=== PATIENT | female | born 1985 | race Hispanic/Latino ===

== ENCOUNTER 2020-01-13 23:54 | Inpatient (IN) | payer OTHER, SELFPAY ==
[2020-01-14 00:31] VITALS: BMI 35.0
[2020-01-14] MEDS: Lactated Ringer's 1,000 ML IV SCH ×2 (02:17→11:35)
[2020-01-14] MEDS ORDERED: Penicillin G Potassium 5 MILL.UNITS VIAL ONE (02:33)
[2020-01-14] MEDS ORDERED: Butorphanol Tartrate 1 MG/ML VIAL SLOW IVP PRN (03:18)
[2020-01-14] MEDS ORDERED: hydrALAZINE 20 MG/ML VIAL SLOW IVP PRN ×2 (03:18→14:07)
[2020-01-14] MEDS ORDERED: Ondansetron PF 4 MG/2 ML Vial IVP PRN ×2 (03:18→14:07)
[2020-01-14] MEDS ORDERED: Promethazine HCl 25 MG/ML VIAL IM PRN (03:18)
[2020-01-14] MEDS ORDERED: NS w/ Oxytocin 10 units 500 ML IV SCH ×2 (03:30)
[2020-01-14] MEDS ORDERED: HYDROcodone/Acetaminophen 5/325 mg Tablet PO PRN ×2 (03:30)
[2020-01-14] MEDS ORDERED: Lidocaine 1% (PF) 30 ML VIAL SC PRN (03:30)
[2020-01-14] MEDS ORDERED: Misoprostol 200 MCG TAB RC PRN (03:30)
[2020-01-14] MEDS ORDERED: Diphenoxylate HCl/Atropine Tablet PO PRN ×2 (03:30)
[2020-01-14] MEDS ORDERED: Penicillin G Potassium 5 MILL.UNITS in Sodium Chloride 0.9% 100 ML IVPB SCH (03:30)
[2020-01-14] MEDS ORDERED: NS / Oxytocin 40 units/1000ml 1,000 ML IV SCH ×2 (03:30→14:15)
[2020-01-14] MEDS ORDERED: Carboprost 250 MCG/ML AMP IM PRN (03:30)
[2020-01-14] MEDS ORDERED: Methylergonovine 0.2 MG/ML VIAL IM PRN (03:30)
[2020-01-14] MEDS ORDERED: Ibuprofen 800 MG TAB PO PRN (03:30)
[2020-01-14 03:53] LABS: Hemoglobin 12.4 g/dL (12.0-16.0); Mean Corpuscular HGB CONC 32.4 g/dL (32.0-36.0); Mean Corpuscular Hemoglobin 25.4 pg (27.0-31.0); Mean Corpuscular Volume 78.5 fL (78.0-98.0); Mean Platelet Volume 9.6 fL (7.4-10.4); Platelet Count 252 thou/uL (130-400); Red Blood Cell (RBC) Count 4.86 mill/uL (4.20-5.40); White Blood Cell (WBC) Count 11.3 thou/uL (4.8-10.8)
[2020-01-14 03:54] LABS: HIV (1/2) Antibody/Antigen NonReactive (NonReactive); HIV 1/2 INDEX 0.16 S/CO (<1.00); Hep B Surf Ag NonReactive S/CO (NonReactive)
--- NOTE | 2020-01-14 04:21 | PDOC.LDPN ---
Labor & Delivery Progress Note - Subjective Subjective: comfortable, no concerns - Objective Vital signs reviewed and normal: yes General: NAD, resting Uterine fundus: non tender Dilation: 3 Effacement: 100% Station: -2 FHT: category 1, variability present [place] contractions every: contractions not currently discernable - Assessment (1) Term Code(s): Z34.90 - ENCNTR FOR SUPRVSN OF NORMAL , UNSP, UNSP TRIMESTER Current Visit: Yes Status: Acute (2) GBS (group B Streptococcus carrier), +RV culture, currently Code(s): O99.820 - STREPTOCOCCUS B CARRIER STATE COMPLICATING Current Visit: Yes Status: Acute Plan: continue plan of care, other (After patient finishes first bag of [place], will consider AROM) Addendum - Attending - Attending Attestation Date/Time: 01/14/20 6856 I personally evaluated the patient and discussed the management with Dr. Bell. I agree with the History, Examination, Assessment and Plan documented above.
[2020-01-14 04:37] LABS: Syphilis Antibody Nonreactive (Nonreactive); Syphilis Antibody Index 0.07 S/CO (<1.00 Non-Reactive)
[2020-01-14] MEDS: Penicillin G 2.5 MILL.units 50 ML IVPB SCH ×2 (07:07→11:35)
--- NOTE | 2020-01-14 07:39 | PDOC.LDPN ---
Labor & Delivery Progress Note - Subjective Subjective: comfortable, painful contractions - Objective Vital signs reviewed and normal: yes General: NAD SVE: 6100/-2 FHT: category 1, variability present [place] contractions every: 6 Plan: continue plan of care -: #sIUP - @ 39.5wga by LMP/18wk sono admitted to L&D -SVE 3100/-2 @ 0400 -SVE 100/-2 @ 0725, intact -FHT: cat 1, baseline 145, ctx q6min -chris q6min but making good change, will recheck cervix in 2hrs #Anemia of -H/H: 12.4/38.1 -will continue to monitor Dispo: admitted to L&D. Making good change on her own. Cat 1 strip. Will recheck cervix in 2hrs or sooner prn. Addendum - Attending - Attending Attestation Date/Time: 01/14/20 1877 I personally evaluated the patient and discussed the management with Dr. Nathan. I agree with the History, Examination, Assessment and Plan documented above with any addition or exceptions noted below.
[2020-01-14] MEDS ORDERED: Lidocaine 1% (PF) 30 ML VIAL ONE (09:24)
[2020-01-14] MEDS ORDERED: NS / Oxytocin 40 units/1000ml 1,000 ML ONE (09:24)
--- NOTE | 2020-01-14 10:15 | PDOC.LDPN ---
Labor & Delivery Progress Note - Subjective Subjective: painful contractions - Objective Vital signs reviewed and normal: yes Abnormal vital signs: 1 elevated pressure during ctx General: breathing through contractions Uterine fundus: non tender SVE: 100/-1 FHT: category 1 (140/mod/+accel/no decels) [place] contractions every: 4-5min AROM: clear fluid Plan: continue plan of care -: #sIUP - @ 39.5wga by LMP/18wk sono -SVE unchanged, /-1 -SROM with clear fluid -FHT: cat 1, baseline 140, ctx q4-5min -continue serial cervical exams #Anemia of -H/H: 12.4/38.1 -will continue to monitor
--- NOTE | 2020-01-14 12:21 | PDOC.LDPN ---
Labor & Delivery Progress Note - Subjective Subjective: painful contractions - Objective Vital signs reviewed and normal: yes General: breathing through contractions Uterine fundus: non tender SVE: /-1 FHT: category 1 (130/mod/+accel/no decels) [place] contractions every: q3-6min AROM: clear fluid -: #sIUP - @ 39.5wga by LMP/18wk sono -SVE, /-1 -FHT: cat 1, baseline 130, ctx q4-5min -recheck in 30 minutes #Anemia of -H/H: 12.4/38.1 -will continue to monitor
[2020-01-14 12:28] LABS: SARS-CoV-2 MS2 Positive; SARS-CoV-2 N Gene Negative; SARS-CoV-2 S Gene Negative; SARS-CoV-2 by NAA Not Detected (NotDetected); SARS-CoV-2 orf1ab Negative
[2020-01-14] MEDS ORDERED: Misoprostol 200 MCG TAB ONE (13:48)
[2020-01-14] MEDS ORDERED: Methylergonovine 0.2 MG/ML VIAL ONE (13:48)
[2020-01-14] MEDS ORDERED: Milk Of Magnesia 30 ML UDCUP PO PRN (14:07)
[2020-01-14] MEDS ORDERED: Adacel (T-DAP) 0.5 ML SYRINGE IM ONE (14:07)
[2020-01-14] MEDS ORDERED: Bisacodyl 10 MG SUPP PR PRN (14:07)
[2020-01-14] MEDS ORDERED: Lanolin Ointment 7 GM TUBE TOP PRN (14:07)
[2020-01-14] MEDS: Ferrous Sulfate 325 MG TAB PO SCH (17:59)
--- NOTE | 2020-01-14 18:07 | PDOC.OPDEL ---
OB Operative/Delivery Note - Additional Findings/Plan Compilations/Other Findings: Delivering Physician Florentin Peterson Attending Dana Procedure: Spontaneous Vaginal Delivery Anesthesia: Local for Repair QBL: 450ml Pre-op Diagnosis: 1. Term intrauterine in labor 2. Anemia of Post-op Diagnosis: 1. Term intrauterine , delivered 2. same as above Indications: A 34y/o female presents in latent labor, was making cervical change. Delivery Note: This is 34y/o female @ 39.5wks who delivered a viable F at 1340. Following an uneventful intrapartum course, a vigorous F was delivered over an intact perineum in the OA position. Anterior Shoulder and then remainder of the body delivered. No nuchal cord. The head was held down and mouth and nares were bulb suctioned. Cord clamped after delayed cord clamping and cut and cord blood collected. Placenta delivered intact in the [place] presentation with a 3 vessel cord noted. Fundal massage was performed and the fundus was firm. The cervix and vagina were inspected and found to have second degree perineal lac. Lac repaired with 3-0 vicryl in the usual fashion with good approximation and hemostasis after a local anesthetic lidocaine was injected at site. went to nursery in good condition for routine care. Apgars were 8/9 at 1 & 5 minutes, respectively. Patient tolerated delivery well and went to after routine recovery/care. Addendum - Attending - Attending Attestation Date/Time: 01/17/20 6867 I personally evaluated the patient and discussed the management with Dr. peterson I agree with the History, Examination, Assessment and Plan documented above with any addition or exceptions noted below. I was present and supervising for the second and third stages of labor
[2020-01-14] MEDS: Docusate Calcium (SURFAK) 240 MG CAP PO SCH (21:38)
[2020-01-14] MEDS: Ibuprofen 800 MG TAB PO SCH (21:38)
[2020-01-15] MEDS: Ibuprofen 800 MG TAB PO SCH ×3 (05:14→21:52)
--- NOTE | 2020-01-15 06:47 | PDOC.PP ---
Post Progress Note Post Day #: 1 Subjective: Pain is well controlled. Ambulating and tolerating PO. Lochia less than a period. No difficulty with urinating. . PO intake tolerated: yes Flatus: yes Ambulation: yes Vital Signs (12 hours) Temp Pulse Resp BP Pulse Ox 01/15/20 05:13 98.9 F 64 18 96/58 L 01/15/20 01:00 97.7 F 61 18 105/55 L 01/14/20 21:30 98.3 F 65 18 102/55 L 98 Weight Weight 89.811 kg - Physical Examination General: NAD Cardiovascular: no m/r/g, RRR Respiratory: clear to auscultation bilaterally Abdominal: + bowel sounds, appropriately TTP Fundus firm & at: below umbilicus Neurological: no gross focal deficits Psychiatric: A&Ox3, normal affect Result Diagrams: 01/14/20 02:17 Additional Labs: Post Labs Blood Type O POSITIVE 01/14/20 05:03 Hep Bs Antigen NonReactive S/CO (NonReactive) 01/14/20 02:17 - Assessment/Plan sIUP, delivered - PPD #1 - Continue routine PP care - Likely d/c home tomorrow Case discussed with Dr Cortez who saw and evaluated the patient
[2020-01-15] MEDS: Prenatal Vitamin 1 TAB PO SCH (08:56)
[2020-01-15] MEDS: Docusate Calcium (SURFAK) 240 MG CAP PO SCH ×2 (08:56→21:52)
[2020-01-15] MEDS: Polyethylene Glycol 3350 17 GM Packet PO SCH (08:57)
[2020-01-15] MEDS: Ferrous Sulfate 325 MG TAB PO SCH ×2 (08:59→17:14)
[2020-01-16] MEDS: Ibuprofen 800 MG TAB PO SCH (06:38)
--- NOTE | 2020-01-16 07:30 | PDOC.PP ---
Post Progress Note Post Day #: 2 Subjective: Pain well controlled. Ambulating, tolerating PO and no difficulty urinating. Lochia less than a period. but concerned her milk is not coming in. PO intake tolerated: yes Flatus: yes Ambulation: yes Vital Signs (12 hours) Temp Pulse Resp BP Pulse Ox 01/15/20 19:43 98.3 F 68 16 111/58 L 98 Weight Weight 89.811 kg - Physical Examination General: NAD Cardiovascular: no m/r/g, RRR Respiratory: clear to auscultation bilaterally, non-labored breathing Abdominal: + bowel sounds, appropriately TTP Fundus firm & at: below umbilicus Neurological: no gross focal deficits Psychiatric: A&Ox3, normal affect Result Diagrams: 01/14/20 02:17 Additional Labs: Post Labs Blood Type O POSITIVE 01/14/20 05:03 Hep Bs Antigen NonReactive S/CO (NonReactive) 01/14/20 02:17 - Assessment/Plan sIUP, delivered - PPD #2 - Continue routine PP care. Educated about . Encouraged her to continue - Natural family planning for contraception - Discharge home today. F/u in 2 wks at [facility] Case discussed with Dr Appiah who saw and evaluated the patient Addendum - Attending - Attending Attestation Date/Time: 01/16/20 0803 I personally evaluated the patient and discussed the management with Dr. Lerma. I agree with the History, Examination, Assessment and Plan documented above.
[2020-01-16 08:23] VITALS: BP 113/55; TEMP 98.4
[2020-01-16] MEDS: Prenatal Vitamin 1 TAB PO SCH (09:07)
[2020-01-16] MEDS: Docusate Calcium (SURFAK) 240 MG CAP PO SCH (09:07)
[2020-01-16] MEDS: Polyethylene Glycol 3350 17 GM Packet PO SCH (09:07)
[2020-01-16] MEDS: Ferrous Sulfate 325 MG TAB PO SCH (09:09)
== END 2020-01-16 11:15 | disposition home or self-care (01) | DRG 807 ==
LOC: L&D/OP 23:54 → L&D 01-14 05:43 → 3SW 01-14 17:45
PROVIDERS: ADMIT Obstetrics & Gynecology; ATTEND Obstetrics & Gynecology
PROC: 10E0XZZ Delivery of Products of Conception, External Approach (ICD-10-PCS; principal; 2020-01-14)
PROC: 0KQM0ZZ Repair Perineum Muscle, Open Approach (ICD-10-PCS; 2020-01-14)
PROC: 10907ZC Drainage of Amniotic Fluid, Therapeutic from Products of Conception, Via Natural or Artificial Opening (ICD-10-PCS; 2020-01-14)
DX: O99.824 Streptococcus B carrier state complicating childbirth (principal); Z37.0 Single live birth; O99.02 Anemia complicating childbirth; D64.9 Anemia, unspecified; O70.1 Second degree perineal laceration during delivery; Z3A.39 39 weeks gestation of pregnancy; Z11.59 Encounter for screening for other viral diseases
CPT/HCPCS: 36415; 85027; 86780; 86850; 86900; 86901; 87340; 87389; 87635; 99285; J2001; J2210; J2540; U0003